=== PATIENT | male | born 1975 | race Caucasian/White ===

== ENCOUNTER 2022-05-05 12:13 | Outpatient (CLI) | payer MEDICAID, SELFPAY ==
[2022-05-05 14:10] LABS: Chloride* 102 mmol/L (96-114)
[2022-05-05 14:11] LABS: Albumin* 4.4 g/dL (3.3-5.0); Sodium* 140 mmol/L (135-149)
[2022-05-05 14:12] LABS: Potassium* 4.2 mmol/L (3.6-5.1)
[2022-05-05 14:14] LABS: Alanine Aminotransferase* 43 U/L (4-50); Alkaline Phosphatase* 116 U/L (40-150); Aspartate Amino Transferase* 68 U/L (12-35); Bilirubin Total* 0.8 mg/dL (0.1-1.5); Blood Urea Nitrogen* 10 mg/dL (5-24); Carbon Dioxide* 32 mmol/L (20-32); Cholesterol* 252 mg/dL (90-199); Creatinine* 0.6 mg/dL (0.5-1.5); Estimated Glomerular Filt Rate 120 ml/min; Total Protein* 7.8 g/dL (6.0-8.3); Triglycerides* 147 mg/dL (40-149)
[2022-05-05 14:15] LABS: Calcium* 9.2 mg/dL (8.4-10.6); HDL Cholesterol* 104 mg/dL (>=40); LDL Cholesterol Calculated 119 mg/dL (<100)
[2022-05-05 14:31] LABS: Glucose* 106 mg/dL (60-115)
== END 2022-05-05 12:14 | disposition home or self-care (01) ==
PROVIDERS: PCP Physician Assistant Medical; Visit Provider Physician Assistant Medical
DX: Z00.00 Encounter for general adult medical examination without abnormal findings (principal); I10 Essential (primary) hypertension; E78.5 Hyperlipidemia, unspecified; R79.89 Other specified abnormal findings of blood chemistry
CPT/HCPCS: 80053; 80061

== ENCOUNTER 2023-05-31 12:50 | Emergency (ER) | payer MEDICAID, SELFPAY ==
[2023-05-31 13:05] VITALS: BP 147/98; PULSE 74; RESP 16; TEMP 36.6; O2SAT 98; BMI 33.5
== END 2023-05-31 14:25 | disposition left against medical advice (07) ==
PROVIDERS: Emergency Provider Emergency Medicine Emergency Medical Services; PCP Physician Assistant Medical
DX: Z53.21 Procedure and treatment not carried out due to patient leaving prior to being seen by health care provider (principal)

== ENCOUNTER 2023-07-25 08:23 | Outpatient (CLI) | payer MEDICAID, SELFPAY | END 2023-07-25 08:24 | disposition home or self-care (01) | PROVIDERS: PCP Physician Assistant Medical; Visit Provider Physician Assistant Medical | DX: Z00.00 Encounter for general adult medical examination without abnormal findings (principal); I10 Essential (primary) hypertension | CPT/HCPCS: 80053; 80061; 84443 ==